=== PATIENT | female | born 1990 | race Caucasian/White ===

== ENCOUNTER 2019-11-05 14:17 | Emergency (ER) | payer OTHER ==
[~2019-11-05] VITALS: Ht 170.2 cm; Wt 80.7 kg
[2019-11-05 15:00] LABS: ABSOLUTE NEUTROPHILS 4.9 thou/uL (1.4-8.2); BASOPHILS 0.7 % (0.0-2.0); EOSINOPHILS 1.2 % (0.0-3.0); HEMATOCRIT 34.4 % (37.0-47.0); HEMOGLOBIN 11.8 gm/dL (12.0-15.0); LYMPHOCYTES 31.3 % (24.0-44.0); MCH 31.1 pg (26.0-34.0); MCHC 34.3 g/dL (28.0-37.0); MCV 90.4 fL (80.0-100.0); MONOCYTES 6.5 % (1.0-8.0); PLATELET COUNT 229 thou/uL (150-400); POLYS 60.3 % (36.0-66.0); RBC 3.81 mil/uL (4.20-5.00); WBC 8.2 thou/uL (4.0-11.0)
[2019-11-05 15:10] LABS: CALCIUM 8.4 mg/dL (8.5-10.1); CREATININE 0.9 mg/dL (0.6-1.0); POTASSIUM 3.9 mmol/L (3.5-5.1)
[2019-11-05] MEDS ORDERED: MOBIC15 MG PO (17:01)
[2019-11-05 17:08] VITALS: BP 101/55
== END 2019-11-05 17:10 | disposition home or self-care (01) ==
LOC: ER 14:17
PROVIDERS: Emergency Medicine
DX: N93.8 Other specified abnormal uterine and vaginal bleeding (principal); R42 Dizziness and giddiness

== ENCOUNTER 2021-02-21 18:55 | Emergency (ER) | payer OTHER ==
[~2021-02-21] VITALS: Ht 170.2 cm; Wt 77.1 kg
[~2021-02-21 18:55] MED LIST: MOBIC15 MG PO
[2021-02-21 19:17] LABS: URINE BILIRUBIN NEGATIVE (Negative); URINE BLOOD 3+ (Negative); URINE CLARITY CLEAR; URINE COLOR YELLOW; URINE GLUCOSE-RANDOM* NEGATIVE (Negative); URINE KETONES TRACE (Negative); URINE LEUKOCYTES-REFLEX NEGATIVE (Negative); URINE NITRITE-REFLEX NEGATIVE (Negative); URINE PROTEIN (DIPSTICK) NEGATIVE (Negative); URINE SPECIFIC GRAVITY 1.025 (1.005-1.035); URINE UROBILINOGEN 0.2 E.U./dl (0.2-1.0)
[2021-02-21 19:31] LABS: SQUAMOUS 4-10 Moderate /LPF (0-3)
[2021-02-21 19:32] LABS: CASTS None Seen /LPF (None Seen); MUCUS 4-6 Moderate strn/LPF (None Seen); URINE RBC >20 Many /HPF (NONE SEEN); URINE WBC-REFLEX 0-5 Rare /HPF (0-5)
[2021-02-21 19:33] LABS: CRYSTALS None Seen /LPF (None Seen)
[2021-02-21] MEDS ORDERED: FLAGYL375 MG PO (19:47)
[2021-02-21] MEDS ORDERED: DOXYCYCLINE 10100 MG PO (19:47)
[2021-02-21 20:21] VITALS: BP 136/71
== END 2021-02-21 20:31 | disposition home or self-care (01) ==
LOC: ER 18:55
PROVIDERS: Nurse Practitioner
DX: N76.0 Acute vaginitis (principal); B96.89 Other specified bacterial agents as the cause of diseases classified elsewhere; F12.90 Cannabis use, unspecified, uncomplicated; Z98.890 Other specified postprocedural states